=== PATIENT | female | born 1995 | race Caucasian/White ===

== ENCOUNTER 2018-05-04 17:35 | Emergency (ER) | payer OTHER ==
[2018-05-04 18:02] VITALS: BP 122/81
--- NOTE | 2018-05-04 18:12 | UC ---
Lower Extremity/Ankle HPI - HPI Summary HPI Summary: c/o pain to her L foot since 05/01/18 when she states she was running on a treadmill for 1 hr and the top of her foot began to hurt. she has a hx of stress fxs in both feet and feels she may have another one. - History of Current Complaint Chief Complaint: UCLowerExtremity Stated Complaint: LT FOOT INJURY Time Seen by Provider: 05/04/18 17:43 Hx Obtained From: Patient Hx Last Menstrual Period: 02/12 ?: No Onset/Duration: Sudden Onset, Lasting Days Severity Initially: Moderate Severity Currently: Moderate Pain Intensity: 5 Aggravating Factor(s): Standing, Ambulation Alleviating Factor(s): Rest Able to Bear Weight: Yes - Allergies/Home Medications Allergies/Adverse Reactions: Allergies Allergy/AdvReac Type Severity Reaction Status Date / Time No Known Allergies Allergy Verified 05/04/18 18:02 Home Medications: Home Medications DOXYcycline CAP(*) [DOXYcycline 100MG CAP(*)] 100 mg PO DAILY 05/04/18 [History Confirmed 05/04/18] Dextroamphetamine/Amphetamine [Adderall 20 mg Tablet] 1 tab PO DAILY 05/04/18 [ History Confirmed 05/04/18] Gabapentin [Neurontin] 300 mg PO TID 05/04/18 [History Confirmed 05/04/18] carBAMazepine TAB(*) [TEGretol TAB(*)] 600 mg PO BID 05/04/18 [History Confirmed 05/04/18] PMH/Surg Hx/FS Hx/Imm Hx Previously Healthy: Yes - Surgical History Surgical History: Yes Surgery Procedure, Year, and Place: brain surgery x 3 - Family History Known Family History: Positive: Cardiac Disease - Social History Alcohol Use: Rare Substance Use Type: None Smoking Status (MU): Never Smoked Tobacco Review of Systems All Other Systems Reviewed And Are Negative: Yes Constitutional: Positive: Negative Skin: Positive: Negative Eyes: Positive: Negative ENT: Positive: Negative Respiratory: Positive: Negative Cardiovascular: Positive: Negative Gastrointestinal: Positive: Negative Genitourinary: Positive: Negative Motor: Positive: Negative Neurovascular: Positive: Negative Musculoskeletal: Positive: Arthralgia, Edema, Myalgia Neurological: Positive: Negative Psychological: Positive: Negative Is Patient Immunocompromised?: No Physical Exam Triage Information Reviewed: Yes Appearance: Well-Nourished, Pain Distress, Thin Vital Signs: Initial Vital Signs Temp 98 F 05/04/18 17:53 Pulse 66 05/04/18 17:53 Resp 16 05/04/18 17:53 BP 122/81 05/04/18 17:53 Pulse Ox 100 05/04/18 17:53 Vital Signs Reviewed: Yes Eye Exam: Normal ENT Exam: Normal Dental Exam: Normal Neck exam: Normal Respiratory Exam: Normal Respiratory: Positive: Chest non-tender, Lungs clear, Normal breath sounds Cardiovascular Exam: Normal Cardiovascular: Positive: RRR, No Murmur, Pulses Normal Abdominal Exam: Normal Bowel Sounds: Positive: Present Musculoskeletal: Positive: Strength Intact, ROM Intact, Edema @ - mild edema to the top of the foot Neurological Exam: Normal Psychological Exam: Normal Lower Extremity Course/Dx - Course Course Of Treatment: hx obtained, exam performed ,meds reviewed, xray obtained no obvious fracture noted, awaiting final results from radiology. rest and follow up with orthopedics prescribed., - Differential Dx/Diagnosis Differential Diagnosis/HQI/PQRI: Contusion, Fracture (Open), Sprain, Strain Provider Diagnosis: Strain of foot, left Discharge - Sign-Out/Discharge Documenting (check all that apply): Patient Departure All imaging exams completed and their final reports reviewed: No Studies - Discharge Plan Condition: Stable Disposition: HOME Patient Education Materials: Metatarsalgia (DC) Referrals: Non Staff,Doctor [Primary Care Provider] - Librado Shook MD [Medical Doctor] - Additional Instructions: 1. the xray did not show any obvious fracture. 2. I would rest the foot for the next few days, if not improving with rest, follow up with an orthopedic 3. warm water soaks and stretching of the foot daily - Billing Disposition and Condition Condition: STABLE Disposition: Home
--- NOTE | 2018-05-05 08:05 | UC ---
- Progress Note Progress Note: Final x-ray reading reviewed. IMPRESSION: Negative exam. Consistent with UC provider wet read. No change in POC. Course/Dx - Diagnoses Provider Diagnoses: Strain of foot, left Discharge - Sign-Out/Discharge Documenting (check all that apply): Patient Departure All imaging exams completed and their final reports reviewed: Yes - Discharge Plan Condition: Stable Disposition: HOME Patient Education Materials: Metatarsalgia (DC) Referrals: Librado Shook MD [Medical Doctor] - Non Staff,Doctor [Primary Care Provider] - Additional Instructions: 1. the xray did not show any obvious fracture. 2. I would rest the foot for the next few days, if not improving with rest, follow up with an orthopedic 3. warm water soaks and stretching of the foot daily - Billing Disposition and Condition Condition: STABLE Disposition: Home
== END 2018-05-04 18:31 | disposition home or self-care (01) ==
LOC: UCCORT 17:35
DX: S96.912A Strain of unspecified muscle and tendon at ankle and foot level, left foot, initial encounter (principal); X58.XXXA Exposure to other specified factors, initial encounter; Y93.A1 Activity, exercise machines primarily for cardiorespiratory conditioning; Y92.9 Unspecified place or not applicable
CPT/HCPCS: 99201; G0463

== ENCOUNTER 2019-01-14 20:19 | Emergency (ER) | payer OTHER ==
[2019-01-14 20:31] VITALS: BP 108/74
--- NOTE | 2019-01-14 20:51 | UC ---
Complaint Female HPI - HPI Summary HPI Summary: Pt presents with c/o of inability to pass urine in the last 24 hours with increasing low back and pelvic pain with c/o swelling in bilateral lower extremities. Pt has a hx of urinary retention with first occurrence in September 2018. Pt states that she did not follow up with a Urologist for further evaluation and treatment. - History Of Current Complaint Stated Complaint: ABD/BACK PAIN, URINARY COMPLAINT Time Seen by Provider: 01/14/19 20:26 Hx Obtained From: Patient Hx Last Menstrual Period: 01/05/19 ?: No Onset/Duration: Sudden Onset, Lasting Days, Still Present, Worse Since - onset Timing: Constant Severity Initially: Mild Severity Currently: Moderate Pain Intensity: 7 Character: Dull, Colicy Aggravating Factor(s): Movement Associated Signs And Symptoms: Positive: Back Pain - Risk Factors Ectopic Risk Factor: Negative Ovarian Torsion Risk Factor: Reproductive Age - Allergies/Home Medications Allergies/Adverse Reactions: Allergies Allergy/AdvReac Type Severity Reaction Status Date / Time No Known Allergies Allergy Verified 01/14/19 20:31 PMH/Surg Hx/FS Hx/Imm Hx Previously Healthy: Yes GI/ History: Other - urinary retention - Surgical History Surgical History: Yes Surgery Procedure, Year, and Place: brain surgery x 3 - Family History Known Family History: Positive: Cardiac Disease - Social History Occupation: Student - [employer] Lives: Dormitory/Roommates Alcohol Use: Rare Substance Use Type: None Smoking Status (MU): Never Smoked Tobacco Have You Smoked in the Last Year: No - Immunization History Vaccination Up to Date: Yes Review of Systems All Other Systems Reviewed And Are Negative: Yes Constitutional: Positive: Fatigue Skin: Positive: Negative Eyes: Positive: Negative ENT: Positive: Negative Respiratory: Positive: Negative Cardiovascular: Positive: Negative Gastrointestinal: Positive: Abdominal Pain Genitourinary: Positive: Other - oliguria Motor: Positive: Negative Neurovascular: Positive: Negative Musculoskeletal: Positive: Negative Neurological: Positive: Negative Psychological: Positive: Negative Is Patient Immunocompromised?: No Physical Exam Triage Information Reviewed: Yes Appearance: Ill-Appearing, Pain Distress Vital Signs: Initial Vital Signs Temp 98.1 F 01/14/19 20:24 Pulse 70 01/14/19 20:24 Resp 14 01/14/19 20:24 BP 108/74 01/14/19 20:24 Pulse Ox 100 01/14/19 20:24 Vital Signs Reviewed: Yes Eye Exam: Normal ENT Exam: Normal Dental Exam: Normal Neck exam: Normal Respiratory: Positive: Normal breath sounds Cardiovascular Exam: Normal Abdomen Description: Positive: Other: - full bladder appreciated, pt c/o of pelvic discomfort Musculoskeletal Exam: Normal Neurological Exam: Normal Psychological Exam: Normal Skin Exam: Normal Complaint Female Dx - Course Course Of Treatment: I discussed with the pt the need for further evaluation and treatment and my recommendation to go to the closest emergency room. Pt verbalized understanding. Pt's friend stated that she would take pt to ER. - Differential Dx/Diagnosis Differential Diagnosis/HQI/PQRI: Ureteral Stone, Urinary Tract Infection, Other - urinary retention Provider Diagnosis: Oliguria, Back pain Discharge ED - Sign-Out/Discharge Documenting (check all that apply): Patient Departure All imaging exams completed and their final reports reviewed: No Studies - Discharge Plan Condition: Stable Disposition: HOME-RECOMMEND TO ED Patient Education Materials: Pelvic Pain in Women (ED), Acute Urinary Retention in Women (ED), Back Pain (ED) Forms: *Gen. Provider Communication, *School Release Referrals: Non Staff,Doctor [Primary Care Provider] - Adiel Briscoe MD [Medical Doctor] - As Soon As Possible Aayush Pedroza MD [Medical Doctor] - As Soon As Possible Additional Instructions: Please go directly to the closest emergency room. Failure to do so, could lead to worsening of your condition. - Billing Disposition and Condition Condition: STABLE Disposition: Home-Recommend to ED
== END 2019-01-14 20:59 | disposition home health service (06) ==
LOC: UCCORT 20:19
DX: R34 Anuria and oliguria (principal); M54.9 Dorsalgia, unspecified; R53.83 Other fatigue; R10.9 Unspecified abdominal pain
CPT/HCPCS: 99211; G0463